=== PATIENT | female | born 1970 | race African-American/Black ===

== ENCOUNTER 2016-11-28 16:04 | Emergency (ER) | payer MEDICARE, MEDICAID ==
[2016-11-28 16:38] VITALS: BP 129/69
--- NOTE | 2016-12-03 08:11 | UC ---
Charu, DoctorLorin, scribed for Lluvia Boland MD on 11/28/16 at 1737 . Knee Pain HPI - HPI Summary HPI Summary: 46 year old [place] [facility] sister c/o left knee pain exacerbated from baseline yesterday afternoon. She reports chronic pain with a bump in the left knee beginning 1 week ago, as well as pain exacerbation after a long walk yesterday. She is planning on seeing a bone specialist within the next month. HPI provided by pt's sister (LUÍS) due to pt's disability (Down Syndrome) - History of Current Complaint Chief Complaint: UCLowerExtremity Stated Complaint: KNEE PAIN Time Seen by Provider: 11/28/16 17:08 Hx Obtained From: Family/Director Maternal Child - Sister (MANNYA) Hx From Patient Unobtainable Due To: Other - Disability - Down Syndrome Hx Last Menstrual Period: none Onset/Duration: Gradual Onset, Lasting Days, Still Present Severity Initially: Moderate Severity Currently: Moderate Location Of Injury: left knee, overuse injury, no fall Pain Intensity: 8 Pain Scale Used: 0-10 Numeric Character: Unable to Describe Aggravating Factor(s): Weight Bearing - pain exacerbated after walking Associated Signs And Symptoms: Positive: Swelling Able to Bear Weight: Yes - Risk Factors Septic Arthritis Risk Factor: Negative Gout Risk Factor: Negative - Allergies/Home Medications Allergies/Adverse Reactions: Allergies Allergy/AdvReac Type Severity Reaction Status Date / Time Hydrocodone Allergy Stomach Verified 04/24/16 14:40 Cramps Home Medications: Home Medications Naproxen [Naproxen 500 MG TABS] 1 PRN 11/28/16 [History] PMH/Surg Hx/FS Hx/Imm Hx Previously Healthy: No - Down's syndrome Endocrine History Of: Denies: Diabetes, Thyroid Disease Cardiovascular History Of: Denies: Cardiac Disorders - no known or reported cardiac issues, Hypertension Respiratory History Of: Denies: COPD, Asthma GI/ History Of: Denies: Ulcer - Surgical History Surgical History: Yes Surgery Procedure, Year, and Place: Heart surgery at 4yrs - Family History Known Family History: Positive: Hypertension, Diabetes - Social History Occupation: Disabled Lives: With Family Alcohol Use: None Substance Use Type: None Smoking Status (MU): Never Smoked Tobacco Household Exposure Type: Cigarettes - Immunization History Most Recent Influenza Vaccination: 2015/2016 season Review of Systems Constitutional: Other - no fever Motor: Negative Neurovascular: Negative Musculoskeletal: Arthralgia - left knee pain Neurological: Negative Psychological: Negative All Other Systems Reviewed And Are Negative: Yes Physical Exam Triage Information Reviewed: Yes Appearance: Well-Appearing, Well-Nourished, Pain Distress - mild pain distress Vital Signs: Initial Vital Signs Temp 97.7 F 11/28/16 16:30 Pulse 69 11/28/16 16:30 Resp 20 11/28/16 16:30 BP 129/69 11/28/16 16:30 Pulse Ox 100 11/28/16 16:30 Vital Signs Reviewed: Yes Eyes: Positive: Conjunctiva Clear ENT: Positive: Normal ENT inspection Neck: Positive: Supple, Nontender Respiratory: Positive: No respiratory distress Cardiovascular: Positive: RRR, Pulses Normal, Brisk Capillary Refill Musculoskeletal: Positive: Strength Intact, ROM Intact, Other: - left knee with medial bony prominence/deformity-has been xrayed per sister and due to see orthopedist soon Neurological: Positive: Alert, Muscle Tone Normal Psychological Exam: Normal Skin Exam: Normal Knee Pain Course/Dx - Differential Dx/Diagnosis Differential Diagnosis/HQI/PQRI: Contusion, Fracture (Closed), Internal Derangement Of Knee, Sprain, Strain, Other - arthritis Provider Diagnoses: acute left knee pain Discharge - Discharge Plan Condition: Stable Disposition: HOME Prescriptions: oxyCODONE/Acetamin 5/325 MG* [Percocet 5/325 TAB*] 1 tab PO Q4H PRN #12 tab MDD 6 PRN Reason: Pain Patient Education Materials: Knee Sprain (ED) Referrals: Ashley Muir MD [Primary Care Provider] - Enrique Ramirez MD [Medical Doctor] - The documentation as recorded by the Doctor rae Tahera accurately reflects the service I personally performed and the decisions made by , Lluvia Boland MD.
== END 2016-11-28 17:41 | disposition home or self-care (01) ==
LOC: UCEAST 16:04
DX: M25.562 Pain in left knee (principal); Q90.9 Down syndrome, unspecified; Z88.5 Allergy status to narcotic agent; Z77.22 Contact with and (suspected) exposure to environmental tobacco smoke (acute) (chronic)
CPT/HCPCS: 99212; G0463

== ENCOUNTER 2017-02-05 14:36 | Emergency (ER) | payer MEDICARE, MEDICAID ==
[2017-02-05 15:12] VITALS: BP 111/71
--- NOTE | 2017-02-05 15:59 | UC ---
Fidel Box Rebecca, scribed for Natasha Loco MD on 02/05/17 at 1514 . Lower Extremity/Ankle HPI - HPI Summary HPI Summary: Pt is a 46 y/o F accompanied by her sister and her niece who presents to [facility] c/o acute on chronic L knee pain s/p mechanical fall. Yesterday, the pt tripped and hit her L knee on stairs. No other injuries, No LOC. Pain worsened this morning and has been constant since onset. On triage, pt reported 10/10 pain, but when asked pt reported no/minimal pain. Sx aggravated by ADLs, alleviated by nothing, unchanged by Naproxen (500 mg). Pt does not have an MARLENY bandage on it currently and has not taken Tylenol. Previous similar episodes have been treated and improved with ice packs, an MARLENY bandage and Percocet per the pt's sister. She has never been evaluated or treated with joint injections. Denies any head, wrist or elbow pain s/p incident. Denies head trauma. Sister states that Ibuprofen and Hydrocodone both cause nausea. Sister states that the L knee has been an ongoing issue and has been brought to the attention of Dr. Nieves ( PCP), stating "she just has a bad knee." Pt currently takes Naproxen 500 mg 2x per day. Sister states that her last prescription for stronger pain medication was 1 or 2 months ago. Allergy to hydrocodone. Pt does not use a walker or cane. Pt with Down Syndrome - struggles with some questions (ie parasthesia) Patient medications reviewed this visit. - History of Current Complaint Chief Complaint: UCLowerExtremity Stated Complaint: KNEE PAIN-RECURRENT Time Seen by Provider: 02/05/17 15:08 Hx Obtained From: Patient, Family/[employer] Dean - Sister Hx Last Menstrual Period: none ?: No Onset/Duration: Sudden Onset, Still Present Severity Initially: Severe Severity Currently: Mild Pain Intensity: 10 - On triage, though pt reported no/minimal when asked Pain Scale Used: 0-10 Numeric Aggravating Factor(s): Other - ADLs Alleviating Factor(s): Nothing Able to Bear Weight: Yes - Allergies/Home Medications Allergies/Adverse Reactions: Allergies Allergy/AdvReac Type Severity Reaction Status Date / Time Hydrocodone Allergy Stomach Verified 08/06/16 14:40 Cramps PMH/Surg Hx/FS Hx/Imm Hx Previously Healthy: Yes - Down Syndrome Endocrine History Of: Denies: Diabetes, Thyroid Disease Cardiovascular History Of: Denies: Cardiac Disorders - no known or reported cardiac issues, Hypertension Respiratory History Of: Denies: COPD, Asthma GI/ History Of: Denies: Ulcer - Surgical History Surgical History: Yes Surgery Procedure, Year, and Place: Heart surgery at 4yrs - Family History Known Family History: Positive: Hypertension, Diabetes - Social History Lives: With Family Alcohol Use: None Substance Use Type: None Smoking Status (MU): Never Smoked Tobacco Household Exposure Type: Cigarettes - Immunization History Most Recent Influenza Vaccination: season Review of Systems Constitutional: Negative Skin: Negative Eyes: Negative ENT: Negative Respiratory: Negative Cardiovascular: Negative Gastrointestinal: Negative Genitourinary: Negative Motor: Negative Neurovascular: Negative Musculoskeletal: Arthralgia - acute on chronic L knee pain Neurological: Negative Psychological: Negative All Other Systems Reviewed And Are Negative: Yes Physical Exam Triage Information Reviewed: Yes Completion Of Physical Exam Limited Due To: Other - Pt with Down Syndrome - struggles with some question comprehension Vital Signs: Initial Vital Signs Temp 97.6 F 02/05/17 15:07 Pulse 62 02/05/17 15:07 Resp 18 02/05/17 15:07 BP 111/71 02/05/17 15:07 Pulse Ox 98 02/05/17 15:07 Vital Signs Reviewed: Yes Eyes: Positive: Conjunctiva Clear ENT: Positive: Hearing grossly normal. Negative: Nasal drainage Neck: Positive: Supple Respiratory: Positive: No respiratory distress Cardiovascular: Positive: Other: - 2+ DP, PT CBT < 2 sec Musculoskeletal: Positive: Other: - + full SLE + full flex/ext knee, ankle + external rotation left hip mild TTP left lateral patella - No edema, no abrasions walked without limp or favor Walked on toes without difficult or discomfort Neurological Exam: Normal - + great to ext Pt reports senasation throughout when touched Skin Exam: Normal Skin: Positive: Other - no contusions, abrasions Lower Extremity Course/Dx - Course Course Of Treatment: Pt with report of trip and re-injure left knee yesterday. Hx primarity from sister. Pt has been given Naproxyn x 1 without reported relief. Pt reports no pain when asked. Pt with non concerning exam and ambulatory without limitations or apparent discomfort, including walking on toes. No marleny wrap at time of eval. I discussed with pt's sister that should wear marleny, ice, elevate. I recommeded pt take Tylenol in addition to Naproxyn. I offered T+C#3 for to supplement. Pt unable to take hydrocodone second to nausea. Sister adament that codeine would not work, but states pt has never tried. Sister felt strongly that pt would not get relief from codeine I should prescribe the "stronger stuff" that worked previously. I expressed to sister that I would write for a short course of codeine and pt should f/u with PCP on Tuesday. Sister not in full agreement but indicated she would do this. Sister then came to desk stating that she works until and requesting T+C through this date. I expressed to sister would prescribe until Tuesday. Sister refused marleny wrap stating does not have time to wait for script - Differential Dx/Diagnosis Provider Diagnoses: left knee pain Discharge - Discharge Plan Condition: Stable Disposition: HOME Prescriptions: Codeine TAB* [Codeine Tab*] 30 mg PO Q8H PRN #12 tab MDD 6 PRN Reason: Pain Patient Education Materials: Knee Pain (ED) Referrals: Ashley Muir MD [Primary Care Provider] - Additional Instructions: - Take Naproxyn 2 times a day as previously prescribed - Okay to take tylelnol product (Tylenol or Tylenol with codeine) every 8 hours. This medication may cause constipation - do NOT drive, operate machinery or drink alcohol while taking this medication - Wear marleny wrap for comfort and support - Appy ice (Wrapped in a towel) 20 minutes at a time, 2-3 times a day - Contact your doctor to schedule a follow-up appointment on Tuesday The documentation as recorded by the Fidel rae Rebecca accurately reflects the service I personally performed and the decisions made by me, Natasha Loco MD.
== END 2017-02-05 15:51 | disposition home or self-care (01) ==
LOC: UCEAST 14:36
DX: M25.562 Pain in left knee (principal); G89.29 Other chronic pain; Q90.9 Down syndrome, unspecified
CPT/HCPCS: 99212; G0463

== ENCOUNTER 2017-03-06 13:49 | Emergency (ER) | payer MEDICARE, MEDICAID ==
[2017-03-06 13:53] VITALS: BP 126/78
--- NOTE | 2017-03-06 13:59 | UC ---
Knee Pain HPI - HPI Summary HPI Summary: left knee pain x 2 weeks pt. has been seen by her pcp , had x ray done and has a referral to ortho in 8 days no know injury - History of Current Complaint Chief Complaint: UCLowerExtremity Stated Complaint: KNEE PAIN Time Seen by Provider: 03/06/17 13:52 Hx Obtained From: Family/Clerical Adviser Hx From Patient Unobtainable Due To: Other - MR Hx Last Menstrual Period: none Onset/Duration: Gradual Onset, Lasting Days, Lasting Weeks - 2, Still Present Severity Initially: Moderate Severity Currently: Moderate Character: Aching Aggravating Factor(s): Movement, Weight Bearing, Prolonged Standing, Stairs Alleviating Factor(s): Rest Associated Signs And Symptoms: Negative: Swelling, Redness, Bruising, Fever, Weakness, Numbness, Tingling - Allergies/Home Medications Allergies/Adverse Reactions: Allergies Allergy/AdvReac Type Severity Reaction Status Date / Time Hydrocodone Allergy Stomach Verified 04/24/16 14:40 Cramps PMH/Surg Hx/FS Hx/Imm Hx - Additional Past Medical History Additional PMH: hx of MR - Surgical History Surgical History: Yes Surgery Procedure, Year, and Place: Heart surgery at 4yrs - Family History Known Family History: Positive: Hypertension, Diabetes - Social History Alcohol Use: None Substance Use Type: None Smoking Status (MU): Never Smoked Tobacco Household Exposure Type: Cigarettes - Immunization History Most Recent Influenza Vaccination: season Review of Systems Constitutional: Negative Skin: Negative Eyes: Negative ENT: Negative All Other Systems Reviewed And Are Negative: Yes Physical Exam Triage Information Reviewed: Yes Appearance: No Pain Distress, Well-Nourished Vital Signs: Initial Vital Signs Temp 98.0 F 03/06/17 13:51 Pulse 70 03/06/17 13:51 Resp 18 03/06/17 13:51 BP 126/78 03/06/17 13:51 Pulse Ox 97 03/06/17 13:51 Vital Signs Reviewed: Yes Eyes: Positive: Conjunctiva Clear ENT: Positive: Normal ENT inspection, Hearing grossly normal, Pharynx normal Neck exam: Normal Respiratory: Positive: Chest non-tender, Lungs clear, Normal breath sounds Cardiovascular: Positive: RRR, No Murmur, Pulses Normal Musculoskeletal: Positive: Other: - left knee: no swelling, no effusion, no tenderness, good ROM on flexion and extension Knee Pain Course/Dx - Differential Dx/Diagnosis Provider Diagnoses: left knee pain Discharge - Discharge Plan Condition: Stable Disposition: HOME Prescriptions: Tramadol HCl [Ultram] 50 mg PO Q8H PRN #15 tab MDD 3 PRN Reason: Pain Patient Education Materials: Knee Pain (ED) Referrals: Ashley Muir MD [Primary Care Provider] - Additional Instructions: please follow up with your ortho on 03/14
== END 2017-03-06 14:11 | disposition home or self-care (01) ==
LOC: UCEAST 13:49
DX: M25.562 Pain in left knee (principal); Z88.5 Allergy status to narcotic agent; Z77.22 Contact with and (suspected) exposure to environmental tobacco smoke (acute) (chronic)
CPT/HCPCS: 99212; G0463

== ENCOUNTER 2017-11-24 18:21 | Emergency (ER) | payer MEDICARE, MEDICAID ==
[2017-11-24 18:35] VITALS: BP 123/66
--- NOTE | 2017-11-24 19:21 | UC ---
Bull Box Jennifer, scribed for Nadir Kennedy MD on 11/24/17 at 1851 . Back Pain HPI - HPI Summary HPI Summary: The pt is a 47 y/o female who complains of knee and back pain that began two days ago. Pt reports the knee pain is in her left knee and back pain is in the center of her back. Pt additionally complains of swelling around her left knee. Her sister reports she noticed pt was dragging her feet while walking and tripped, which is why she brought her into Urgent Care today. Pt is accompanied by her sister. - History of Current Complaint Chief Complaint: UCBackPain Stated Complaint: BACK PAIN, AND KNEE PAIN Time Seen by Provider: 11/24/17 18:40 Hx Obtained From: Patient, Family/Band Master - Sister Hx Last Menstrual Period: none Onset/Duration: Sudden Onset, Lasting Days - 2 days Timing: Constant Severity Initially: Moderate Severity Currently: Moderate Pain Intensity: 8 Pain Scale Used: 0-10 Numeric Aggravating Factor(s): Nothing Alleviating Factor(s): Nothing Associated Signs And Symptoms: Positive: Other - back pain, knee pain, swelling around left knee - Allergies/Home Medications Allergies/Adverse Reactions: Allergies Allergy/AdvReac Type Severity Reaction Status Date / Time hydrocodone Allergy Nausea And Verified 11/24/17 18:36 Vomiting PMH/Surg Hx/FS Hx/Imm Hx Previously Healthy: Yes - NEG: HTN, DM - Surgical History Surgical History: Yes Surgery Procedure, Year, and Place: Heart surgery at 4yrs - Family History Known Family History: Positive: Hypertension, Diabetes - Social History Alcohol Use: None Substance Use Type: None Smoking Status (MU): Never Smoked Tobacco Household Exposure Type: Cigarettes - Immunization History Most Recent Influenza Vaccination: 2014/2015 season Review of Systems Constitutional: Negative - Fever Musculoskeletal: Myalgia - Back pain, left knee pain, swelling around left knee Is Patient Immunocompromised?: No All Other Systems Reviewed And Are Negative: Yes Physical Exam - Summary Physical Exam Summary: General: well-appearing, no pain distress. Pt has an intellectual disability and responded yes to all questions. Skin: warm, color reflects adequate perfusion, dry Head: normal Eyes: EOMI, CHUY ENT: normal Neck: supple, nontender Respiratory: CTA, breath sounds present Cardiovascular: RRR Abdomen: soft, nontender Bowel: present Musculoskeletal: low back hand to palpation, left knee had good ROM, no swelling, and stable to exam. strength/ROM intact Neurological: normal, sensory/motor intact, A&O x3 Psychological: affect/mood appropriate. Pt has an intellectual disability and responded yes to all questions. Triage Information Reviewed: Yes Vital Signs: Initial Vital Signs Temp 97.6 F 11/24/17 18:30 Pulse 81 11/24/17 18:30 Resp 16 11/24/17 18:30 BP 123/66 11/24/17 18:30 Pulse Ox 100 11/24/17 18:30 Vital Signs Reviewed: Yes Back Pain Course/Dx - Course Course Of Treatment: Medications reviewed. Allergies noted. SISTER PROVIDED MOST OF THE HX. SHE REPORTS THE OXYCODONE/ACETAMINOPHEN HELPED TO MOST LAST TIME. SISTER STATES THE PAIN RETURNED WHEN SHAY CHANGED JOBS AT [email or web address]. SHE PLANS TO GET THE JOB CHANGED. NO NEUROLOGIC DEFICIT. - Differential Dx/Diagnosis Provider Diagnoses: LOW BACK PAIN. LEFT KNEE PAIN Discharge - Discharge Plan Condition: Stable Disposition: HOME Prescriptions: oxyCODONE/Acetamin 5/325 MG* [Percocet 5/325 TAB*] 1 tab PO Q6H PRN #20 tab MDD 4 PRN Reason: Pain Patient Education Materials: Acute Low Back Pain (ED), Knee Pain (ED) Referrals: Ashley Muir MD [Primary Care Provider] - Additional Instructions: FOLLOW UP WITH YOUR DOCTOR. GET RECHECKED FOR ANY WORSENING OF YOUR CONDITION OR QUESTIONS OR CONCERNS. YOUR BLOOD PRESSURE WAS ELEVATED TODAY; FOLLOW UP WITH YOUR PRIMARY CARE DOCTOR WITHIN ONE WEEK. The documentation as recorded by the Bull rae Jennifer accurately reflects the service I personally performed and the decisions made by me, Nadir Kennedy MD.
== END 2017-11-24 19:00 | disposition home or self-care (01) ==
LOC: UCEAST 18:21
DX: M54.5 Low back pain (principal); M25.562 Pain in left knee; Z88.5 Allergy status to narcotic agent
CPT/HCPCS: 99212; G0463

== ENCOUNTER 2018-03-06 21:09 | Emergency (ER) | payer MEDICARE, MEDICAID ==
[2018-03-06 21:21] VITALS: BP 132/78
--- NOTE | 2018-03-06 21:58 | RAD ---
Indication: RIGHT knee pain for one week. Posterior pain. Comparison: None. Technique: RIGHT knee: AP, tunnel, lateral, sunrise views. Report: Small suprapatellar joint effusion. Negative for fracture. Severe osteophytosis and lateral joint space narrowing with associated partial flattening of the articular surfaces and subchondral sclerosis. Associated approximate 0.8 cm lateral translation of the tibial plateau relative to the femoral condyles. Mild diffuse soft tissue swelling. IMPRESSION: Severe osteoarthritis most marked at the lateral joint compartment. Small effusion. Negative for fracture.
--- NOTE | 2018-03-06 22:05 | UC ---
Janna Box Elizabeth, scribed for Rich Steel MD on 03/06/18 at 2133 . Knee Pain HPI - HPI Summary HPI Summary: This patient is a 47 year old F presenting to [facility] with a chief complaint of right knee pain since 2 days ago. The patient denies any injury or trauma to the knee. The patient rates the pain 8/10 in severity. Symptoms aggravated by nothing. Symptoms alleviated by nothing. The patients family member reports that the patient cannot walk. - History of Current Complaint Chief Complaint: UCLowerExtremity Stated Complaint: KNEE PAIN Time Seen by Provider: 03/06/18 21:25 Hx Obtained From: Patient Hx Last Menstrual Period: none Onset/Duration: Sudden Onset, Lasting Days - 2 days, Still Present Severity Initially: Moderate Severity Currently: Moderate Pain Intensity: 8 Pain Scale Used: 0-10 Numeric Aggravating Factor(s): Nothing Alleviating Factor(s): Nothing - Allergies/Home Medications Allergies/Adverse Reactions: Allergies Allergy/AdvReac Type Severity Reaction Status Date / Time hydrocodone Allergy Nausea And Verified 03/06/18 21:22 Vomiting Home Medications: Home Medications Acetaminophen TAB* [Tylenol TAB*] 650 mg PO Q4H PRN 03/06/18 [History Confirmed 03/06/18] PMH/Surg Hx/FS Hx/Imm Hx Previously Healthy: Yes - down syndrome Other Endocrine History: negative diabetes Other Cardiovascular History: negative htn - Surgical History Surgical History: Yes Surgery Procedure, Year, and Place: Heart surgery at 4yrs - Family History Known Family History: Positive: Hypertension, Diabetes - Social History Alcohol Use: None Substance Use Type: None Smoking Status (MU): Never Smoked Tobacco Household Exposure Type: Cigarettes - Immunization History Most Recent Influenza Vaccination: 2014/2015 season Review of Systems Constitutional: Negative - NEGATIVE FEVER ENT: Negative - NEGATIVE EPISTAXIS Gastrointestinal: Negative - NEGATIVE VOMITING Musculoskeletal: Arthralgia - right knee pain All Other Systems Reviewed And Are Negative: Yes Physical Exam - Summary Physical Exam Summary: VITAL SIGNS: Reviewed. GENERAL: Patient is a well-developed and nourished FEMALE who is lying comfortable in the stretcher. Patient is not in any acute respiratory distress. HEAD AND FACE: Normocephalic EYES: PERRLA, EOMI x 2. EARS: Hearing grossly intact. MOUTH: Oropharynx within normal limits. NECK: Supple, trachea is midline, no adenopathy, no JVD, no carotid bruit. CHEST: Symmetric, no tenderness at palpation LUNGS: Clear to auscultation bilaterally. No wheezing or crackles. CVS: Regular rate and rhythm, S1 and S2 present, no murmurs or gallops appreciated. ABDOMEN: Soft, non-tender. Bowel sounds are normal. No abdominal abnormal pulsations. EXTREMITIES: Full ROM in all major joints, no edema, no cyanosis or clubbing. NEURO: Alert and oriented x 3. No acute neurological deficits. Speech is normal and follows commands. SKIN: Dry and warm Triage Information Reviewed: Yes Vital Signs: Initial Vital Signs Temp 98.6 F 03/06/18 21:16 Pulse 91 03/06/18 21:16 Resp 14 03/06/18 21:16 BP 132/78 03/06/18 21:16 Pulse Ox 100 03/06/18 21:16 Vital Signs Reviewed: Yes Diagnostics - Radiology right knee XR Xray Interpretation: No Acute Changes - IMPRESSION: Severe osteoarthritis most marked at the lateral joint compartment. Small effusion. Negative for fracture. Dr. Stele has reviewed this report. Radiology Interpretation Completed By: Radiologist Knee Pain Course/Dx - Course Course Of Treatment: X-ray of the knee shows no fracture dislocation. Patient was recommended to take Tylenol or ibuprofen for pain. Follow-up with the primary care physician. - Differential Dx/Diagnosis Provider Diagnoses: Knee pain Discharge - Sign-Out/Discharge Documenting (check all that apply): Discharge/Admit/Transfer - Discharge Plan Condition: Stable Disposition: HOME Discharge Disposition Comment: discharge home Patient Education Materials: Knee Pain (ED) Referrals: Ashley Muir MD [Primary Care Provider] - - Billing Disposition and Condition Condition: STABLE Disposition: Home The documentation as recorded by the Janna rae Elizabeth accurately reflects the service I personally performed and the decisions made by , Rich Steel MD.
== END 2018-03-06 22:07 | disposition home or self-care (01) ==
LOC: UCEAST 21:09
DX: M25.561 Pain in right knee (principal); M17.11 Unilateral primary osteoarthritis, right knee; M25.461 Effusion, right knee; Q90.9 Down syndrome, unspecified; Z88.5 Allergy status to narcotic agent; Z82.49 Family history of ischemic heart disease and other diseases of the circulatory system; Z83.3 Family history of diabetes mellitus
CPT/HCPCS: 99211; G0463

== ENCOUNTER → 2018-10-13 12:01 | Emergency (ER) | payer MEDICARE, MEDICAID ==
[2018-10-13 15:26] VITALS: BP 139/79
--- NOTE | 2018-10-13 17:58 | ED ---
Lower Extremity - HPI Summary HPI Summary: Patient is a 47-year-old female who presents emergency department for ongoing right knee pain after fall that occurred a few days ago. Patient has a history of developmental delay and resides with her aunt who is her caregiver. Patient' s aunt states that she tripped and fell several days ago and has been favoring/ limping. No other injuries were sustained. Symptoms are mild in severity. Walking makes symptoms worse. Rest makes symptoms better. 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 Hx Last Menstrual Period: none Pain Intensity: 3 Pain Scale Used: 0-10 Numeric - Allergies/Home Medications Allergies/Adverse Reactions: Allergies Allergy/AdvReac Type Severity Reaction Status Date / Time hydrocodone Allergy Nausea And Verified 03/06/18 21:22 Vomiting PMH/Surg Hx/FS Hx/Imm Hx Previously Healthy: Yes Endocrine/Hematology History: Denies: Hx Diabetes, Hx Thyroid Disease Cardiovascular History: Denies: Hx Hypertension Respiratory History: Denies: Hx Asthma, Hx Chronic Obstructive Pulmonary Disease (COPD) GI History: Denies: Hx Ulcer - Surgical History Surgery Procedure, Year, and Place: Heart surgery at 4yrs Infectious Disease History: No Infectious Disease History: Denies: Hx Clostridium Difficile, Hx Hepatitis, Hx Human Immunodeficiency Virus (HIV), Hx of Known/Suspected MRSA, Hx Shingles, Hx Tuberculosis, Hx Known/ Suspected VRE, Hx Known/Suspected VRSA, History Other Infectious Disease, Traveled Outside the [place] in Last 30 Days - Family History Known Family History: Positive: Hypertension, Diabetes - Social History Occupation: Disabled Lives: With Family Alcohol Use: None Substance Use Type: Reports: None Smoking Status (MU): Never Smoked Tobacco Review of Systems Constitutional: Negative Negative: Fever, Chills Gastrointestinal: Negative Positive: Other - Right knee pain and swelling Skin: Negative All Other Systems Reviewed And Are Negative: Yes Physical Exam Triage Information Reviewed: Yes Vital Signs On Initial Exam: Initial Vitals Temp Pulse Resp BP Pulse Ox 97.8 F 73 18 129/76 100 10/13/18 12:02 10/13/18 12:02 10/13/18 12:02 10/13/18 12:02 10/13/18 12:02 Vital Signs Reviewed: Yes Appearance: Positive: Well-Appearing - Pt. sitting on bed in NAD. Interactive. Family member present. Skin: Positive: Warm, Dry Head/Face: Positive: Normal Head/Face Inspection Eyes: Positive: Normal, EOMI Neck: Positive: Supple Musculoskeletal: Positive: Other - Small-moderate effusion noted to the right knee with pain on ROM. No overlying erythema or increased warmth. No breaks in the skin. Neurological: Positive: Normal, CN Intact II-III Psychiatric: Positive: Affect/Mood Appropriate Diagnostics - Vital Signs Vital Signs Temp Pulse Resp BP Pulse Ox 10/13/18 15:24 98.6 F 70 18 139/79 98 10/13/18 14:03 98.8 F 86 15 125/79 99 10/13/18 12:02 97.8 F 73 18 129/76 100 - Laboratory Lab Statement: Any lab studies that have been ordered have been reviewed, and results considered in the medical decision making process. Lower Extremity Course/Dx - Course Course Of Treatment: Patient presenting for ongoing knee pain after fall a few days ago. No signs of infection on exam. Knee xray per radiology: IMPRESSION: 1. OSTEOPENIA. 2. OSTEOARTHRITIS. 3. JOINT EFFUSION. 4. NO ACUTE OSSEOUS INJURY. THE DEGREE OF OSTEOPENIA MAY MAKE A NONDISPLACED FRACTURE. RADIOGRAPHICALLY OCCULT. IF SYMPTOMS PERSIST, RECOMMEND REPEAT IMAGING. Xray results were disussed with pt.'s aunt. Pt.'s aunt is very concerned about the possibility of an occult fx. She states that pt. has really been favoring knee and has been c/o ongoing pain. CT ordered to rule out occult fracture. CT per radiology: IMPRESSION: #. No CT evidence for fracture. #. Advanced osteoarthritis. #. Moderately large joint effusion without gross lipohemarthrosis. Tobin wrap placed for comfort. The patient follow up with orthopedics for further evaluation. Advised to ice and elevate. Tylenol or Motrin for pain as directed. Patient is ambulatory in the ER. - Diagnoses Differential Diagnosis/HQI/PQRI: Positive: Arthritis, Contusion, Fracture ( Closed), Sprain, Strain Provider Diagnoses: Knee effusion, Knee injury Discharge - Sign-Out/Discharge Documenting (check all that apply): Patient Departure - Discharge Plan Condition: Good Disposition: HOME Patient Education Materials: Knee Sprain (ED) Referrals: Ashley Muri MD [Primary Care Provider] - Janelle Daley MD [Medical Doctor] - Additional Instructions: Schedule a follow up appointment with orthopedics Ice and elevate Activity as tolerated Tylenol or Motrin for pain as directed Return to ER if symptoms change or worsen - Billing Disposition and Condition Condition: GOOD Disposition: Home
== END | disposition home or self-care (01) ==
LOC: ED 12:01
DX: M25.461 Effusion, right knee (principal); S89.91XA Unspecified injury of right lower leg, initial encounter; M25.561 Pain in right knee; W19.XXXA Unspecified fall, initial encounter; Y92.9 Unspecified place or not applicable
CPT/HCPCS: 99282

== ENCOUNTER 2019-06-12 13:21 | Emergency (ER) | payer MEDICARE, MEDICAID ==
[2019-06-12] MEDS ORDERED: Ibuprofen PED LIQ 100 MG/5 ML UDC PO ONE (15:38)
[2019-06-12 16:58] VITALS: BP 128/88
--- NOTE | 2019-06-13 05:09 | ED ---
Upper Extremity Pain - HPI Summary HPI Summary: This patient is a 48-year-old female with a history of Down syndrome presenting to the ED with staff member with a chief complaint of left shoulder upper arm and elbow pain. Symptoms have been present since 2 AM. Patient reports no trauma. States she awoke at around 2 this morning with severe left arm pain. She states the pain is worse to the left superior shoulder radiating down into the left lateral portion of the upper arm and elbow. Staff member at bedside states she has not been lifting anything more frequently or having any overuse. She has never injured this arm in the past. Tends to not complain which concerned the staff member. Has not taken anything for discomfort. Patient is to be having a knee replacement surgery next month, so they have been working on more upper body strength, getting out of chairs, etc, which could have aggravated the arm. Sxs worse with movement and better with rest. Sxs worse with internal rotation and better with rest. Denies fevers, sweats or chills. Denies any lower ext pain. - History of Current Complaint Chief Complaint: EDExtremityUpper Stated Complaint: LT SHOULDER AND ELBOW PAIN PER PT Time Seen by Provider: 06/12/19 14:33 Hx Obtained From: Patient Hx Last Menstrual Period: none Mechanism Of Injury: Unknown Onset/Duration: Started Hours Ago Timing: Constant Severity Initially: Moderate Severity Currently: Moderate Pain Location: Shoulder, Arm, Elbow Character: Aching Aggravating Factor(s): Internal/External Rotation Alleviating Factor(s): Rest Associated Signs & Symptoms: Negative: Swelling, Redness, Bruising, Numbness/ Tingling, Chest Pain Related History: Dominant Hand Right - Risk Factors Non-Orthopedic Risk Factor: Negative DVT Risk Factors: Negative Septic Arthritis Risk Factor: Negative Compartment Syndrome Risk Factors: Pain - Allergies/Home Medications Allergies/Adverse Reactions: Allergies Allergy/AdvReac Type Severity Reaction Status Date / Time hydrocodone Allergy Nausea And Verified 11/29/18 07:58 Vomiting PMH/Surg Hx/FS Hx/Imm Hx Previously Healthy: Yes Endocrine/Hematology History: Denies: Hx Diabetes, Hx Thyroid Disease Cardiovascular History: Denies: Hx Hypertension Respiratory History: Denies: Hx Asthma, Hx Chronic Obstructive Pulmonary Disease (COPD) GI History: Denies: Hx Ulcer - Surgical History Surgery Procedure, Year, and Place: Heart surgery at 4yrs - Immunization History Hx Pertussis Vaccination: No Immunizations Up to Date: Yes Infectious Disease History: No Infectious Disease History: Denies: Hx Clostridium Difficile, Hx Hepatitis, Hx Human Immunodeficiency Virus (HIV), Hx of Known/Suspected MRSA, Hx Shingles, Hx Tuberculosis, Hx Known/ Suspected VRE, Hx Known/Suspected VRSA, History Other Infectious Disease, Traveled Outside the [place] in Last 30 Days - Family History Known Family History: Positive: Hypertension, Diabetes - Social History Occupation: Unemployed Lives: Long-Term Alcohol Use: None Hx Substance Use: No Substance Use Type: Reports: None Hx Tobacco Use: No Smoking Status (MU): Never Smoked Tobacco Review of Systems Negative: Fever, Chills, Fatigue, Skin Diaphoresis Negative: Palpitations, Chest Pain Negative: Shortness Of Breath, Cough Genitourinary: Negative Positive: no symptoms reported, see HPI Positive: Arthralgia - left shoulder pain and elbow pain Skin: Negative Neurological: Negative All Other Systems Reviewed And Are Negative: Yes Physical Exam Triage Information Reviewed: Yes Vital Signs On Initial Exam: Initial Vitals Temp Pulse Resp BP Pulse Ox 97.8 F 71 17 125/70 98 06/12/19 13:24 06/12/19 13:24 06/12/19 13:24 06/12/19 13:24 06/12/19 13:24 Vital Signs Reviewed: Yes Appearance: Positive: Well-Appearing, Well-Nourished Skin: Positive: Warm, Skin Color Reflects Adequate Perfusion Head/Face: Positive: Normal Head/Face Inspection Eyes: Positive: EOMI, CHUY, Conjunctiva Clear Neck: Positive: Supple, No Lymphadenopathy Respiratory/Lung Sounds: Positive: Clear to Auscultation, Breath Sounds Present Cardiovascular: Positive: RRR, Pulses are Symmetrical in both Upper and Lower Extremities Musculoskeletal: Positive: Pain @ - left shoulder and elbow pain Neurological: Positive: Sensory/Motor Intact, Alert, Oriented to Person Place, Time, Speech Normal Psychiatric: Positive: Affect/Mood Appropriate Diagnostics - Vital Signs Vital Signs Temp Pulse Resp BP Pulse Ox 06/12/19 16:57 98.3 F 75 16 128/88 97 06/12/19 13:24 97.8 F 71 17 125/70 98 - Laboratory Lab Statement: Any lab studies that have been ordered have been reviewed, and results considered in the medical decision making process. Course/Dx - Course Course Of Treatment: During his course of treatment, the patient waited for left shoulder, upper arm and left elbow pain. Patient denies any trauma. She denies any lifting of anything heavy. She's never injured the arm in the past. On physical examination, symptoms are worse with full extension as well as internal rotation. Better with rest at side. Continues to be able to supinate and pronate, however with some discomfort. Continues to be able to flex and extend, abduct and adduct at the left shoulder, however with discomfort. Patient is endorsing a 5/10 pain. Staff member at bedside concerned as patient tends to not complain. X-ray of the left shoulder obtained which shows normal before meals joint alignment mild superior subluxation of the humeral head relative to the glenoid and decreased humoral acromial interval favoring rotator cuff pathology. Elbow x-ray obtained which shows a probable radial head fracture with joint effusion. This is not apparent to provider on xray and is not consistent as no injury. However, she will f/u with orthopedics for further evaluation of this and the subluxation of the L shoulder. Discussed these findings with the patient and staff member. Sling given and she will follow-up with orthopedics for her symptoms. I have encouraged 600 mg ibuprofen every 8 hours and she is given 600mg liquid ibuprofen while in the ED. - Diagnoses Differential Diagnosis/HQI/PQRI: Positive: Strain, Sprain, Other - radial head fracture, shoulder pain, elbow pain, tendonitis, arthritis, trauma, elbow effusion Provider Diagnoses: Subluxation, Elbow effusion Discharge ED - Sign-Out/Discharge Documenting (check all that apply): Patient Departure Patient Received Moderate/Deep Sedation with Procedure: No - Discharge Plan Condition: Stable Disposition: HOME Prescriptions: Ibuprofen ADULT LIQ* [Motrin LIQ ADULT*] 600 mg PO TID #1 [facility] [place] Patient Education Materials: Rotator Cuff Injury (ED) Referrals: Juan Garg MD [Medical Doctor] - Ashley Muir MD [Primary Care Provider] - Additional Instructions: Please follow up with Dr. Garg - call office tomorrow morning for an appt Keep the sling applied x 24 -48 hours then as needed for comfort Ibuprofen 600mg three times daily - Billing Disposition and Condition Condition: STABLE Disposition: Home - Attestation Statements Provider Attestation: I was available for consult. This patient was seen by the HITESH. The patient was not presented to, seen by, or examined by me. Glenn Castillo MD
== END 2019-06-12 16:57 | disposition home or self-care (01) ==
LOC: ED 13:21
DX: S53.19 Other subluxation and dislocation of ulnohumeral joint (principal); M25.422 Effusion, left elbow; X58.XXXA Exposure to other specified factors, initial encounter; Y92.9 Unspecified place or not applicable; Q90.9 Down syndrome, unspecified; Z88.5 Allergy status to narcotic agent
CPT/HCPCS: 99282

== ENCOUNTER 2019-07-23 05:48 | Inpatient (IN) | payer MEDICARE, MEDICAID ==
[~2019-07-23 05:48] MED LIST: Buffered Lidocaine 1% SYRIN* 1 ML/SYRINGE INTRADERM ONE; Tranexamic Acid 1,000 MG in NS 0.9% 50 ML* (outpatient use) IV SCH
--- OUTSIDE RECORDS SUMMARY | 2019-07-23 05:53 | XMS REPORT | Continuity of Care Document ---
:1970 External Reference #:[id number] Author Name Juan Garg M.D. (transmitted by agent of provider Rebecca Ortez) Address [address] [place] [address] Care Team Providers Name Role Phone Trista Giron M.D. 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 Onset: 06/20/2019 Social History Type Date Description Comments Sex Unknown Tobacco Use Start: Unknown Never Smoked Cigarettes ETOH Use Drinks Alcoholic Beverages 1 per week Occasionally Tobacco Use Start: Unknown Patient has never smoked Recreational Drug Use Denies Drug Use Tobacco Use Start: Unknown Secondhand smoke In the past Smoking Status Reviewed: 06/20/19 Secondhand smoke In the past Exercise Type/Frequency Exercises regularly Exercise Type/Frequency Oscar Chi 3x per week Exercise Type/Frequency Bikes sporadically Stationary Allergies, Adverse Reactions, Alerts Description No Known Drug Allergies Medications Active Medications SIG Qnty Indications Ordering Provider Date Levothyroxine Sodium 1 by mouth Ashley Muir 50mcg daily MD Yajaira Tablets Atorvastatin Calcium 1 by mouth Ashley Muir 20mg daily MD Yajaira Tablets Restasis Multidose Unknown 0.05% Emulsion Diclofenac Sodium Unknown 1% Gel History Medications Hinge Knee Brace Disp 1 hinge 1units M17.31 Juan Garg, 05/24/2019 - knee brace for MLamine 06/14/2019 right knee OA Ht 55 Wt 160 Immunizations Description No Information Available Vital Signs Date Vital Result Comment 06/20/2019 2:45pm Height 55.5 inches 4'7.50" Weight 160.00 lb Heart Rate 64 /min BP Systolic 122 mmHg BP Diastolic 72 mmHg Body Temperature 96.1 F Pain Level 3 BMI (Body Mass Index) 36.5 kg/m2 06/14/2019 10:36am Height 55 inches 4'7" Weight 160.00 lb Heart Rate 73 /min BP Systolic 132 mmHg BP Diastolic 70 mmHg Body Temperature 96.8 F Pain Level 10 BMI (Body Mass Index) 37.2 kg/m2 Results Description No Information Available Procedures Description No Information Available Medical Devices Description No Information Available Encounters Type Date Location Provider Dx Diagnosis Office Visit 04/11/2019 [facility] Juan Garg, M17.31 Unilateral 8:30a at [facility].[place] post-traumatic osteoarthritis, right knee Office Visit 03/16/2019 [facility] Teresa Painter, G47.33 Obstructive sleep 9:15a [facility] ap[facility] (adult) [facility] (pediatric) Assessments Date Code Description Provider 06/20/2019 M17.31 Unilateral post-traumatic osteoarthritis, Juan Garg M.D. right knee 06/14/2019 M25.512 Pain in left shoulder Janelle Daley MD 06/14/2019 M25.522 Pain in left elbow Janelle Daley MD 06/14/2019 S52.122A Displaced fracture of head of left radius, Janelle Daley MD initial encounter for closed fracture 06/14/2019 M75.42 Impingement syndrome of left shoulder Janelle Daley MD 05/23/2019 M17.31 Unilateral post-traumatic osteoarthritis, Juan Garg M.D. right knee 04/11/2019 M17.31 Unilateral post-traumatic osteoarthritis, Juan Garg M.D. right knee 03/16/2019 G47.33 Obstructive sleep apnea (adult) (pediatric) Teresa Painter MD Plan of Treatment Future Appointment(s):08/22/2019 3:30 pm - Jaun Garg M.D. at [facility] at Mwgkam4506/28/2019 9:15 am - Janelle Daley MD at [facility] at Wkrpcx7007/11/2019 2:00 pm - Gutierrez Olivarez M.D. at [facility]/23/2019 7:30 am - Juan Garg M.D. at [facility] at Zymfkd5606/20/2019 - Juan Garg M.D.7.31 Unilateral post- traumatic osteoarthritis, right kneeFollow up:Follow up: 4 weeks post-op Functional Status Description No Information Available Mental Status Description No Information Available Referrals Description No Information Available
--- OUTSIDE RECORDS SUMMARY | 2019-07-23 05:53 | XMS REPORT | Continuity of Care Document ---
:1970 External Reference #:[id number] Author Name Soham Britt MD Address [address] [place] [address] Care Team Providers Name Role Phone Mack MOSS, Claribel Care Team Information Collective Bargaining Specialist [phone] Gutierrez Olivarez MD - Spec/Tech, Care Team Information Collective Bargaining Specialist [phone] Cardiovascular Problems Description No Information Available Social History Type Date Description Comments Sex Unknown Tobacco Use Start: Unknown Never Smoked Cigarettes Tobacco Use Start: Unknown Never Smoked Cigars Tobacco Use Start: Unknown Never Smoked A Pipe Smokeless Tobacco Never Used Smokeless Tobacco ETOH Use Currently rarely consumes alcohol Allergies, Adverse Reactions, Alerts Description No Known Drug Allergies Medications Active Medications SIG Qnty Indications Ordering Provider Date Ibuprofen Unknown 600mg Tablets Atorvastatin Calcium TK 1 T PO D Unknown 20mg Tablets Levothyroxine Sodium Claribel Giron MD. 50mcg Tablets Restasis Unknown 0.05% Emulsion Diclofenac Sodium Daily Unknown 50mg Tablets DR Holt Description No Information Available Vital Signs Date Vital Result Comment 07/12/2019 3:53pm Weight 163.00 lb Weight 73.937 kg Results Description No Information Available Procedures Date Code Description Status 07/12/2019 89382 Tympanometry Completed 07/12/2019 00197 Comprehensive Audiogram Completed 07/12/2019 58163 Removal Wax Impaction Completed Medical Devices Description No Information Available Encounters Type Date Location Provider Dx Diagnosis Office Visit 07/12/2019 [place],Soham Linder H90.5 Unspecified 3:30p 09/19/07 sensorineural hearing loss H61.23 Impacted cerumen, bilateral Assessments Date Code Description Provider 07/12/2019 H90.5 Unspecified sensorineural hearing loss Soham Britt MD 07/12/2019 H61.23 Impacted cerumen, bilateral Soham Britt MD Plan of Treatment 07/12/2019 - Soham Britt MDH90.5 Unspecified sensorineural hearing lossH61.23 Impacted cerumen, bilateralComments:The patient's cerumen impaction was cleaned without difficulty. mild hearing loss presently does notwarrant any further investigation or treatment but should have further follow-up annually Functional Status Description No Information Available Mental Status Description No Information Available Referrals Description No Information Available
--- OUTSIDE RECORDS SUMMARY | 2019-07-23 05:53 | XMS REPORT | Continuity of Care Document ---
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 06/14/2019 right knee OA Ht 55 Wt 160 Immunizations Description No Information Available Vital Signs Date Vital Result Comment 06/14/2019 10:36am Height 55 inches 4'7" Weight 160.00 lb Heart Rate 73 /min BP Systolic 132 mmHg BP Diastolic 70 mmHg Body Temperature 96.8 F Pain Level 10 BMI (Body Mass Index) 37.2 kg/m2 04/11/2019 9:10am Height 55 inches 4'7" Weight 160.00 lb Heart Rate 64 /min BP Systolic Sitting 112 mmHg Lue BP Diastolic Sitting 84 mmHg Lue Respiratory Rate 16 /min Body Temperature 98.1 F Pain Level 4 BMI (Body Mass Index) 37.2 kg/m2 Results Description No Information Available Procedures Description No Information Available Medical Devices Description No Information Available Encounters Type Date Location Provider Dx Diagnosis Office Visit 06/14/2019 [facility] Janelle Daley MD M25.512 Pain in left 10:30a at [place] shoulder M25.522 Pain in left elbow S52.122A Disp fx of head of left radius, init for clos fx M75.42 Impingement syndrome of left shoulder Office Visit 04/11/2019 [facility] M17.31 Unilateral 8:30a Orthopedics indira Garg M.D. post-traumatic [place] osteoarthritis, right knee Office Visit 03/16/2019 [facility] Teresa G47.33 Obstructive sleep 9:15a [facility] apnea (adult) [employer] (pediatric) Assessments Date Code Description Provider 06/14/2019 M25.512 Pain in left shoulder Janelle Daley MD 06/14/2019 M25.522 Pain in left elbow Janelle Daely MD 06/14/2019 S52.122A Displaced fracture of head of left radius, Janelle Daley MD initial encounter for closed fracture 06/14/2019 M75.42 Impingement syndrome of left shoulder Janelle Daley MD 05/23/2019 M17.31 Unilateral post-traumatic osteoarthritis, Juan Garg M.D. right knee 04/11/2019 M17.31 Unilateral post-traumatic osteoarthritis, Juan Garg M.D. right knee 03/16/2019 G47.33 Obstructive sleep apnea (adult) (pediatric) Teresa Painter MD Plan of Treatment Future Appointment(s):06/28/2019 9:15 am - Janelle Daley MD at [facility] at Rjbcer2806/20/2019 2:45 pm - Juan Gagr M.D. at [facility] at Vlkllb6307/11/2019 2:00 pm - Gutierrez Olivarez M.D. at [place] [facility]07/23/2019 7:30 am - Juan Garg M.D. at [facility] at Tbupmq3906/14/2019 - Janelle Daley, MDM25.512 Pain in left ouulhdjfI98.522 Pain in left yexfoZ80.122A Displaced fracture of head of left radius, initial encounter for closed fractureFollow up:Follow up: 2 vnurrF23.42 Impingement syndrome of left shoulder Functional Status Description No Information Available Mental Status Description No Information Available Referrals Description No Information Available
--- OUTSIDE RECORDS SUMMARY | 2019-07-23 05:53 | XMS REPORT | Continuity of Care Document ---
:1970 External Reference #:[id number] Author Name Gutierrez Olivarez M.D. (transmitted by agent of provider Danielle Martino) Address [address] [address] Care Team Providers Name Role Phone Trista Giron M.D. 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 Onset: 06/20/2019 Disorder of shoulder Janelle Daley MD Onset: 06/28/2019 Closed fracture of head of radius Janelle Daley MD Onset: 06/28/2019 Social History Type Date Description Comments Sex Unknown Tobacco Use Start: Unknown Never Smoked Cigarettes ETOH Use Drinks Alcoholic Beverages 1 per week Occasionally Tobacco Use Start: Unknown Patient has never smoked Recreational Drug Use Denies Drug Use Tobacco Use Start: Unknown Secondhand smoke In the past Smoking Status Reviewed: 07/11/19 Secondhand smoke In the past Exercise Type/Frequency Exercises regularly Exercise Type/Frequency Oscar Chi 3x per week Exercise Type/Frequency Bikes sporadically Stationary Allergies, Adverse Reactions, Alerts Description No Known Drug Allergies Medications Active Medications SIG Qnty Indications Ordering Provider Date Levothyroxine Sodium 1 by mouth daily Ashley Muir 50mcg MD Yajaira Tablets Atorvastatin Calcium 1 by mouth daily Ashley Muir 20mg MD Yajaira Tablets Restasis Multidose 1 gtt both eyes Unknown 0.05% twice daily Emulsion Diclofenac Sodium as needed Unknown 1% Gel Ibuprofen one tablet by Unknown 600mg Tablets mouth q6 as needed pain History Medications Hinge Knee Brace Disp 1 hinge 1units M17.31 Juan Garg, 05/24/2019 - knee brace for M.D. 06/14/2019 right knee OA Ht 55 Wt 160 Immunizations Description No Information Available Vital Signs Date Vital Result Comment 07/11/2019 11:45am Height 55.5 inches 4'7.50" Weight 164.00 lb with shoes BP Systolic 112 mmHg LA BP Diastolic 66 mmHg LA BP Systolic Sitting 110 mmHg Ra BP Diastolic Sitting 64 mmHg Ra BMI (Body Mass Index) 37.4 kg/m2 Ejection Fraction 55-60% Echo 09/26/18 06/28/2019 8:58am Height 55.5 inches 4'7.50" Results Test Date Facility Test Result H/L Range Note Urinalysis Profile 07/10/2019 [facility] Urine Color Straw [address] [place] [address] [phone] Urine Appearance Clear Urine Specific [place] 1.009 Low 1.010-1.030 Urine pH 5.0 Normal 5-9 Urine Urobilinogen Negative Negative Urine Ketones Negative Negative Urine Protein Negative Negative Urine Leukocytes Trace Abnormal Negative Urine Blood Negative Negative Urine Nitrite Negative Negative Urine Bilirubin Negative Negative Urine Glucose Negative Negative Urine White Blood Cell Trace(0-5/hpf) Absent Urine Red Blood Cell 1+(3-5/hpf) Abnormal Absent Urine Bacteria Absent Absent Urine Squamous Epithelial Cell Present Abnormal Absent Inr/Protime 07/10/2019 [facility] Inr 1.06 Normal 0.82-1.09 [address] [place] [address] [phone] Laboratory test 07/10/2019 [facility] Partial 30.8 Normal 26.0 -38.[address] [facility] ([place], [place]) [place] [address] Time PTT [phone] Comp Metabolic 07/10/2019 [facility] Sodium 139 mmol/L Normal 135-145 Panel [address] [place] [address] [phone] Potassium 4.7 mmol/L Normal 3.5-5.0 Chloride 105 mmol/L Normal 101-111 Co2 Carbon Dioxide 29 mmol/L Normal 22-32 Anion Gap 5 mmol/L Normal 2-11 Glucose 88 mg/dL Normal 70-100 Blood Urea Nitrogen 14 mg/dL Normal 6-24 Creatinine 0.97 mg/dL High 0.51-0.95 BUN/Creatinine Ratio 14.4 Normal 8-20 Calcium 8.7 mg/dL Normal 8.6-10.3 Total Protein 7.0 g/dL Normal 6.4-8.9 Albumin 3.5 g/dL Normal 3.2-5.2 Globulin 3.5 g/dL Normal 2-4 Albumin/Globulin Ratio 1.0 Normal 1-3 Total Bilirubin 0.50 mg/dL Normal 0.2-1.0 Alkaline Phosphatase 71 U/L Normal 34-104 Alt 13 U/L Normal 7-52 Ast 14 U/L Normal 13-39 Egfr Non- 60.8 >60 Egfr 73.6 >60 2 CBC Auto 07/10/2019 [facility] White Blood 6.0 10^3/uL Normal 3.5-10.[address] [place] [address] [phone] Red Blood Count 4.53 10^6/uL Normal 3.70-4.87 Hemoglobin 12.5 g/dL Normal 12.0-16.0 Hematocrit 39 % Normal 35-47 Mean Corpuscular Volume 86 fL Normal 80-97 Mean Corpuscular Hemoglobin 28 pg Normal 27-31 Mean Corpuscular HGB Conc 32 g/dL Normal 31-36 Red Cell Distribution Width 17 % High 10-15 Platelet Count 259 10^3/uL Normal 150-450 Mean Platelet Volume 7.4 fL Normal 7.4-10.4 Abs Neutrophils 3.2 10^3/uL Normal 1.5-7.7 Abs Lymphocytes 2.2 10^3/uL Normal 1.0-4.8 Abs Monocytes 0.5 10^3/uL Normal 0-0.8 Abs Eosinophils 0.1 10^3/uL Normal 0-0.6 Abs Basophils 0.1 10^3/uL Normal 0-0.2 Abs Nucleated RBC 0.0 10^3/uL Granulocyte % 52.7 % Lymphocyte % 36.6 % Monocyte % 8.0 % Eosinophil % 1.4 % Basophil % 1.3 % Nucleated Red Blood Cells % 0.1 Type & Screen 07/10/2019 [facility] Patient Blood Type A Positive [address] [place] [address] [phone] Antibody Screen NEGATIVE 1 Standard intensity warfarin therapeutic range: 2.0-3.0 High intensity warfarin therapeutic range: 2.5-3.5 2 Because ethnic data is not always readily available, this report includes an eGFR for both -Americans and non- Americans. The National Kidney Disease Education Program (NKDEP) does not endorse the use of the MDRD equation for patients that are not between the ages of 18 and 70, are , have extremes of body size, muscle mass, or nutritional status, or are non- or non-. According to the National Kidney Foundation, irrespective of diagnosis, the stage of the disease is based on the level of kidney function: Stage Description GFR(mL/min/1.73 m(2)) 1 Kidney damage with normal or decreased GFR 90 2 Kidney damage with mild decrease in GFR 60-89 3 Moderate decrease in GFR 30-59 4 Severe decrease in GFR 15-29 5 Kidney failure <15 (or dialysis) Procedures Date Code Description Status 07/11/2019 29809 EKG Tracing & Interpretation Completed Medical Devices Description No Information Available Encounters Type Date Location Provider Dx Diagnosis Office Visit 07/11/2019 [facility] Gutierrez Johnson R94.31 Abnormal 2:00p Of Yesenia Olivarez M.D. electrocardiogram [ECG] [EKG] Z01.810 Encounter for preprocedural cardiovascular examination R06.00 Dyspnea, unspecified Office Visit 06/28/2019 9:15a [facility] Janelle Daley M75.42 Impingement at [place] syndrome of left shoulder S52.125D Nondisp fx of head of l rad, subs for clos fx w routn heal Office Visit 06/14/2019 10:30a [facility] Janelle Daley M25.512 Pain in left at [place] [facility] M25.522 Pain in left elbow M75.42 Impingement syndrome of left shoulder S52.125A Nondisp fx of head of left radius, init for clos fx Office Visit 04/11/2019 [facility] Martinez M17.31 Unilateral 8:30a Orthopedics at [facility]anda Garg post-traumatic [place] osteoarthritis, right knee Office Visit 03/16/2019 [facility] G47.33 Obstructive sleep 9:15a [facility] apnea (adult) Yesenia (pediatric) Assessments Date Code Description Provider 07/11/2019 R94.31 Electrocardiogram abnormal Gutierrez Olivarez M.D. 07/11/2019 Z01.810 Preoperative cardiovascular examination Gutierrez Olivarez M.D. 07/11/2019 R06.00 Dyspnea Gutierrez Olivarez M.D. 06/28/2019 M75.42 Impingement syndrome of left shoulder Janelle Daley MD 06/28/2019 S52.125D Nondisplaced fracture of head of left Janelle Daley MD radius, subsequent encounter for closed fracture with routine healing 06/20/2019 M17.31 Unilateral post-traumatic osteoarthritis, Juan Garg M.D. right knee 06/14/2019 M25.512 Pain in left shoulder Janelle Daley MD 06/14/2019 M25.522 Pain in left elbow Janelle Daley MD 06/14/2019 M75.42 Impingement syndrome of left shoulder Janelle Daley MD 06/14/2019 S52.125A Nondisplaced fracture of head of left Janelle Daley MD radius, initial encounter for closed fracture 05/23/2019 M17.31 Unilateral post-traumatic osteoarthritis, Juan Garg M.D. right knee 04/11/2019 M17.31 Unilateral post-traumatic osteoarthritis, Juan Garg M.D. right knee 03/16/2019 G47.33 Obstructive sleep apnea (adult) Teresa Painter MD (pediatric) Plan of Treatment Future Appointment(s):07/17/2019 2:00 pm - Ica ECHO Schedule at [facility]07/20/2019 9:30 am - Gutierrez Olivarez M.D. at [facility]08/09/2019 1:30 pm - Janelle Daley MD at [facility] at Gpkezm3108/22/2019 3:30 pm - Juan Garg M.D. at [facility]07/23/2019 7:30 am - Juan Garg M.D. at [facility] at [id number]/11/2019 - Gutierrez Olivarez M.D.R94.31 Electrocardiogram abnormalNew Orders:Stress Test, Pharmacologic Nuclear (Lexiscan), Scheduled: Echocardiogram, Scheduled: 07/17/19Follow up:3 rqghdW81.810 Preoperative cardiovascular ztztrltandfV19.00 Dyspnea Functional Status Description No Information Available Mental Status Description No Information Available Referrals Description No Information Available
--- OUTSIDE RECORDS SUMMARY | 2019-07-23 05:53 | XMS REPORT | Continuity of Care Document ---
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 Onset: 03/27/2019 Inactive: 03/27/2019 Adjustment disorder with mixed emotional features Onset: 03/27/2019 Inactive: 03/27/2019 Social History Type Date Description Comments Sex Unknown Tobacco Use Start: Unknown Patient has never smoked Smoking Status Reviewed: 07/11/19 Patient has never smoked Allergies, Adverse Reactions, Alerts Description No Known Drug Allergies Medications Active Medications SIG Qnty Indications Ordering Date Provider Rolling Walker 4 wheeled rolling 1units M17.9 [place] 07/11/2019 walker fit to MD Mack patent's height Icd 10: M17.9 Atorvastatin Calcium 1 daily oral 90tabs [place] 11/27/2018 MD Mack 20mg Tablets Levothyroxine Sodium 1 daily oral 90tabs [place] 11/27/2018 [facility] Mack 50mcg Tablets Eucerin Apply twice daily 120units Unknown 11/24/2018 Cream External Diclofenac Sodium 4 gm four times each 480units Unknown 07/24/2018 1% day prn Transdermal Gel Acetaminophen 2 every 6 hours prn Unknown 07/21/2018 325mg Oral; May use Tablets acetaminophen 650mg every 6 hours as needed for control of pain. Medications Administered in Office Medication SIG Qnty Indications Ordering Provider Date TB Intradermal Test Unknown 07/21/2018 Injection Immunizations CPT Code Status Date Vaccine Lot # [id number] Given 06/15/2019 Flu < 65 years [id number] 98829 Given 07/21/2018 Influenza Virus Vaccine, Quadrivalent, Split Virus, Im Use 0.5ML 34150 Given 07/21/2018 Flu < 65 years 63046 Given 07/21/2018 Influenza Virus Vaccine, Quadrivalent, Split, Preservative Free 11377 Given 07/21/2018 Flumist 73901 Given 07/21/2018 Flu High Dose 03806 Given 07/21/2018 Influenza Virus Vaccine, Split, Preserv Free, Intradermal Use 43493 Given 06/16/2015 Influenza Virus Vaccine, Quadrivalent, Split Virus, Im Use 0.5ML 92181 Given 06/16/2015 Flu < 65 years 44226 Given 06/16/2015 Influenza Virus Vaccine, Quadrivalent, Split, Preservative Free 13743 Given 06/16/2015 Flumist 28719 Given 06/16/2015 Flu High Dose 19490 Given 08/07/2013 Flu High Dose 97376 Given 08/07/2013 Fl[place]ist 12588 Given 08/07/2013 Influenza Virus Vaccine, Quadrivalent, Split, Preservative Free 24327 Given 08/07/2013 Flu < 65 years 30489 Given 08/07/2013 Influenza Virus Vaccine, Quadrivalent, Split, Im Use 0.25ML 48115 Given 08/07/2013 Influenza Virus Vaccine, Quadrivalent, Split, Im Use 0.25ML 18922 Given 08/07/2013 Influenza Virus Vaccine, Quadrivalent, Split, Im Use 0.25ML 16534 Given 08/22/2012 Influenza Virus Vaccine, Quadrivalent, Split, Im Use 0.25ML 82314 Given 08/22/2012 Influenza Virus Vaccine, Quadrivalent, Split, Im Use 0.25ML 74089 Given 08/22/2012 Influenza Virus Vaccine, Quadrivalent, Split, Im Use 0.25ML 65727 Given 08/22/2012 Flu < 65 years 53812 Given 08/22/2012 Influenza Virus Vaccine, Quadrivalent, Split, Preservative Free 04690 Given 08/22/2012 Flumist 89565 Given 08/22/2012 Flu High Dose 39576 Given 08/22/2012 Influenza Virus Vaccine, Split Virus, Preservative Free Im 0.5ML Q2038 Given 06/15/2011 Influenza Vaccine (Fluzone) Administered Age 3 And Older 89573 Given 06/15/2011 Influenza Virus Vaccine, Quadrivalent, Split, Im Use 0.25ML 58871 Given 07/13/2010 Influenza Virus Vaccine, Quadrivalent, Split, Im Use 0.25ML 73131 Given 07/13/2010 Influenza Virus Vaccine, Split Virus, Preservative Free Im 0.5ML Vital Signs Date Vital Result Comment 07/11/2019 9:30am BP Systolic 114 mmHg BP Diastolic 66 mmHg Weight 162.00 lb Heart Rate 72 /min Body Temperature 96.4 F O2 % BldC Oximetry 99 % 06/15/2019 10:43am BP Systolic 114 mmHg BP Diastolic 64 mmHg Height 56 inches 4'8" Weight 160.00 lb Heart Rate 61 /min Body Temperature 95.8 F O2 % BldC Oximetry 99 % BMI (Body Mass Index) 35.9 kg/m2 Results Test Acquired Date Facility Test Result H/L Range Note TSH 02/15/2019 N2N/CCD Import TSH 3.16 mcIU/mL 0.34-5.60 mcIU/mL Procedures Date Code Description Status 04/30/2019 89635 Brief Emotional/Behav Assessment W/ Scoring Doc Per Completed Standard Inst Medical Devices Description No Information Available Encounters Type Date Location Provider Dx Diagnosis Office Visit 07/11/2019 [facility] Caesar Giron MD M17.9 Osteoarthritis of knee, 9:30a unspecified Z01.818 Encounter for other preprocedural examination Office Visit 06/15/2019 11:00a [facility] Caesar Giron MD S52.125D Nondisp fx of head of l rad, subs for clos fx w routn heal M17.9 Osteoarthritis of knee, unspecified Z23 Encounter for immunization Z68.35 Body mass index (BMI) 35.0-35.9, adult Assessments Date Code Description Provider 07/11/2019 M17.9 Osteoarthritis of knee, unspecified Trista Giron MD 07/11/2019 Z01.818 Encounter for other preprocedural examination Trista Giron MD 06/15/2019 S52.125D Nondisplaced fracture of head of left radius, Trista Giron MD subsequent encounter for closed fracture with routine healing 06/15/2019 M17.9 Osteoarthritis of knee, unspecified Trista Giron MD 06/15/2019 Z23 Encounter for immunization Trista Giron MD 06/15/2019 Z68.35 Body mass index (BMI) 35.0-35.9, adult Trista Giron MD Plan of Treatment 07/11/2019 - Trista Giron MDM17.9 Osteoarthritis of knee, unspecifiedNew Medication:Rolling Walker - 4 wheeled rolling walker fit to patent's height Icd 10: M17.9New Orders:Physical Therapy Evaluate And Treat, Ordered: Z01.818 Encounter for other preprocedural examination Functional Status Description No Information Available Mental Status Description No Information Available Referrals Description No Information Available
--- OUTSIDE RECORDS SUMMARY | 2019-07-23 05:53 | XMS REPORT | Continuity of Care Document ---
:1970 External Reference #:[id number] Author Name Janelle Daley MD (transmitted by agent of provider Johana Cohen) Address [address], [place] [address] Care Team Providers Name Role Phone Trista Giron M.D. 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 Onset: 06/20/2019 Closed fracture of head of radius Janelle Daley MD Onset: 06/28/2019 Disorder of shoulder Janelle Daley MD Onset: 06/28/2019 Social History Type Date Description Comments Sex Unknown Tobacco Use Start: Unknown Never Smoked Cigarettes ETOH Use Drinks Alcoholic Beverages 1 per week Occasionally Tobacco Use Start: Unknown Patient has never smoked Recreational Drug Use Denies Drug Use Tobacco Use Start: Unknown Secondhand smoke In the past Smoking Status Reviewed: 06/28/19 Secondhand smoke In the past Exercise Type/Frequency [...] Juan Garg, 05/24/2019 - knee brace for M.DEliana 06/14/2019 right knee OA Ht 55 Wt 160 Immunizations Description No Information Available Vital Signs Date Vital Result Comment 06/28/2019 8:58am Height 55.5 inches 4'7.50" 06/20/2019 2:45pm Height 55.5 inches 4'7.50" Weight 160.00 lb Heart Rate 64 /min BP Systolic 122 mmHg BP Diastolic 72 mmHg Body Temperature 96.1 F Pain Level 3 BMI (Body Mass Index) 36.5 kg/m2 Results Description No Information Available Procedures Description No Information Available Medical Devices Description No Information Available Encounters Type Date Location Provider Dx Diagnosis Office Visit 06/14/2019 [facility] Janelle Daley MD M25.512 Pain in left 10:30a at [place] shoulder M25.522 Pain in left elbow M75.42 Impingement syndrome of left shoulder S52.125A Nondisp fx of head of left radius, init for clos fx Office Visit 04/11/2019 [facility] M17.31 Unilateral 8:30a [facility] at [facility] post-traumatic [place] osteoarthritis, right knee Office Visit 03/16/2019 [facility] G47.33 Obstructive sleep 9:15a [facility] (adult) 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 right knee 06/14/2019 M25.512 Pain in left shoulder Janelle Daley MD 06/14/2019 M25.522 Pain in left elbow Janelle Daley MD 06/14/2019 M75.42 Impingement syndrome of left shoulder Janelle Daley MD 06/14/2019 S52.125A Nondisplaced fracture of head of left Janelle Daley MD radius, initial encounter for closed fracture 05/23/2019 M17.31 Unilateral post-traumatic osteoarthritisJuan M.D. right knee 04/11/2019 M17.31 Unilateral post-traumatic osteoarthritis, Juan Garg M.D. right knee 03/16/2019 G47.33 Obstructive sleep apnea (adult) (pediatric) Teresa Painter MD Plan of Treatment Future Appointment(s):08/09/2019 1:30 pm - Janelle Daley MD at [facility] at Jnntvm1808/22/2019 3:30 pm - Juan Garg M.D. at [facility] at Lqnthi4707/11/2019 2:00 pm - Gutierrez Olivarez M.D. at [facility]07/23/2019 7:30 am - Juan Garg M.D. at [facility] at Vybzzw3906/28/2019 - Janelle Daley, MDM75.42 Impingement syndrome of left qppgzfyoG18.125A Nondisplaced fracture of head of left radius, initial encounter for closed fractureNew Xrays:Elbow Left 3+VWS, Ordered: Follow up:Follow up: 6 weeks Functional Status Description No Information Available Mental Status Description No Information Available Referrals Description No Information Available
[2019-07-23] MEDS ORDERED: Lactated Ringers 1000 ML Bag* 1,000 ML IV SCH (06:00)
[2019-07-23] MEDS ORDERED: Acetaminophen TAB* 325 MG PO ONE (06:00)
[2019-07-23] MEDS ORDERED: celeCOXIB CAP* 200 MG PO ONE (06:00)
[2019-07-23] MEDS ORDERED: Gabapentin CAP(*) 300 MG PO ONE (06:00)
[2019-07-23] MEDS ORDERED: celeCOXIB CAP* 200 MG ONE (06:50)
[2019-07-23] MEDS ORDERED: ceFAZolin 2 GM in NS PREMIX(*) 2 GM/100 ML BAG IVPB ONE (06:50)
[2019-07-23] MEDS ORDERED: Acetaminophen TAB* 325 MG ONE (06:50)
[2019-07-23] MEDS ORDERED: Gabapentin CAP(*) 300 MG ONE (06:50)
[2019-07-23] MEDS ORDERED: Propofol* 500 MG/50 ML BTL ONE (07:10)
[2019-07-23] MEDS ORDERED: Midazolam* 1 MG/ML 2 ML VIAL (2 MG) ONE (07:10)
[2019-07-23] MEDS ORDERED: fentaNYL* 50 MCG/ML 2 ML VIAL (100 MCG VIAL) ONE (07:10)
[2019-07-23] MEDS ORDERED: ROPIVACAINE 5 MG/ML 30 ML BTL (0.5%) ONE (07:16)
[2019-07-23] MEDS ORDERED: Bupivacaine 0.25% SDV PF* 10 ML VIAL INJ ONE (07:22)
[2019-07-23] MEDS ORDERED: Lidocaine 1% w EPI 1:200,000* SDV 30 ML VIAL ONE (07:29)
[2019-07-23] MEDS ORDERED: Phenylephrine 10 MG/ML VIAL* 1 ML VIAL ONE (08:04)
[2019-07-23] MEDS ORDERED: oxyCODONE TAB* 5 MG TAB PO PRN ×2 (08:29→10:34)
[2019-07-23] MEDS ORDERED: PROCHLORPERAZINE INJ 5 MG/ML 2 ML VIAL IV PRN (08:29)
[2019-07-23] MEDS ORDERED: Ondansetron INJ* 2 MG/ML VIAL IV PRN (08:29)
[2019-07-23] MEDS ORDERED: Naloxone* 0.4 MG/ML 1 ML VIAL IV PRN (08:29)
[2019-07-23] MEDS ORDERED: HYDROmorphone INJ1* 1 MG/ML SYRINGE IV PRN (08:29)
[2019-07-23] MEDS ORDERED: EPHEDrine (Pressors)* 50 MG/ML VIAL ONE (08:46)
[2019-07-23] MEDS ORDERED: diPHENhydraMINE IV* 50 MG/ML 1 ml VIAL (BENADRYL) IV PRN (10:34)
[2019-07-23] MEDS ORDERED: Morphine INJ* 2 MG/ML 1 ML SYRINGE (TWO MG - NEW SYRINGE VERSION) IV PRN (10:34)
[2019-07-23] MEDS ORDERED: Magnesium Hydroxide LIQ* 30 ML UDC PO PRN (10:34)
[2019-07-23] MEDS ORDERED: Cyclobenzaprine TAB* 10 MG PO PRN (10:34)
[2019-07-23] MEDS ORDERED: diPHENhydraMINE PO* 25 MG PO PRN (10:34)
[2019-07-23] MEDS: traMADol TAB* 50 MG PO SCH ×3 (13:35→23:14)
[2019-07-23] MEDS: Acetaminophen TAB* 325 MG PO SCH ×2 (13:41→23:14)
[2019-07-23] MEDS: ceFAZolin 1 GM ADVAN(*) 1 GM in NS 0.9% 50 ML* 50 ML IVPB SCH ×2 (15:43→23:16)
[2019-07-23] MEDS ORDERED: Warfarin TAB(*) 10 MG PO ONE (17:00)
--- NOTE | 2019-07-23 19:45 | OP ---
DATE OF OPERATION: 07/23/19 - ROOM #341 DATE OF : 66 ATTENDING SURGEON: Juan Garg MD ASSISTANT HEAD CASHIER: MARY Castaneda ANESTHESIA: Spinal/regional/sedation. PRE-OP DIAGNOSES: Osteoarthritis and valgus deformity of right knee. POST-OP DIAGNOSES: Osteoarthritis and valgus deformity of right knee. OPERATIVE PROCEDURE: Right total knee arthroplasty with Navio guidance. ESTIMATED BLOOD LOSS: 50 cc. COMPLICATIONS: None. HARDWARE: [employer] 3 narrow femur, #2 tibia, 9 mm polyethylene spacer, 29 mm polyethylene button. SUMMARY: Ms. Guzman is a 48-year-old female who has had a long history of troubles with her knees. She has down syndrome and had some very specific laxity as well. She still has a good solid MCL so I did not think she needed to constrain knee. By x-ray she was bone on bone in the lateral compartment with hyperplasia of the lateral femoral condyle so that she would have a 20 to 30 degrees valgus deformity to the knee. Her aunt who had knee replacements had seen how Kristal would struggle with trying to walk and get up and we had talked quite a bit about knee replacement surgery. Having gone through it, she realized that there is quite a bit to do and she coordinated with the entire family and the whole family did agree that knee replacement surgery for Ms. Guzman would be of benefit. Ms. Guzman also did agree. Risks of surgery such as infection, scar formation, stiffness, DVT, pulmonary embolism, and hardware failure were some of the risks discussed and they had all wished to proceed. She had a good premedical workup and had been declared optimized for surgery. DESCRIPTION OF PROCEDURE: The patient had a femoral nerve block placed in the holding area, was brought back to the OR. Spinal anesthesia was introduced. Alexandra catheter was placed. Tourniquet was placed over the proximal right thigh and was used during the case. Total tourniquet time would be 90 minutes. Right knee was prepped and then draped. Esmarch was used to exsanguinate the leg and the tourniquet was raised. Midline incision was made centered about the patella and carried down to the medial side of the tibial tubercle. Incision was carried out approximately 4 to 5 cm above the superior pole of the patella. Incision was carried down through the skin and subcutaneous tissues. Small bleeders encountered but ligated using electrocautery. Sharp parapatellar arthrotomy was made and a gush of clear yellowish joint fluid was encountered. Soft tissues were sharply elevated from the medial side of the tibia and the fat pad was sharply excised. Pins for the arrays of the Navio were then placed into the femur and into the tibia. Pins were also placed. Data points were then input for the arrays, the femoral and tibial pins, medial and lateral malleoli, center of the tibia, and the center of the femur. Distal femur was then scanned in until there was enough data point so that the computer was pleased and then similarly for the proximal tibia. The proximal tibia was also scanned in until adequate data points had been obtained. Computer sizer for a 3 narrow and a 2 and this corresponded well to preoperative templating. Parts were adjusted. She had quietly hypoplastic lateral femoral condyle such that almost no bone was taken laterally and most of the bone was taken medially from the femur and then the alignment adjusted to close down the gap so that she will be stable in flexion and extension. In flexion, there was still a larger medial gap, but this was adjusted as best it could be and I thought it would work well. Distal femur was then resected using the leonel and peg holes were then made. Distal femoral cutting block was placed and the top pad was used to check the alignment. The alignment appeared within half a degree and half a millimeter. Proximal femoral cut, anterior femoral cut, posterior femoral cut, and Chamfer cuts were all taken. Attention was turned to the tibia. Peg holes were drilled out using Navio guidance and the tibial guide was placed. Using the top pad this was weaned on a little bit so that she was within a degree and a millimeter of the preoperative templating and the tibial guide was also pinned into place. Proximal tibia was then resected. Spacer block was placed and in extension, she appeared perfect. With flexion, she had a little bit of medial looseness of about 2 to 3 mm but considering the alignment, I thought we are in excellent condition. Patella measured 20 mm at the peak and 12 on the medial and 15 on the lateral. Nice cut was taken leaving 10 to 11 mm of patella. Patella sized at 29 and holes were drilled and trial was snapped into place. Stress views also had been obtained and saved on the Navio. Pins were all then removed so I could check for patellar tracking and patellar tracking appeared excellent. Trial instrumentation was removed and the femur was finished using first the reamer and then the box osteotome. Similarly tibia was prepared using the drill and then the punch. The knee was copiously pulse lavaged. Parts were brought on and cement was being prepared. Tibia followed by femur and patella were all cemented into place. Excess cement was removed and while awaiting for the cement to dry, the tibial pin sites were closed using 3-0 nylon sutures. Once the cement was hardened, knee was searched for additional pieces of cement and a few small pieces were found. Knee was again copiously pulse lavaged. Trial [address] and she had wonderful motion, locking out now into full extension where before she could not and she could flex easily and a very good stability throughout. Trial was removed and knee was again copiously pulse lavaged and searched for cement. Polyethylene was then snapped into place. Knee was again pulse lavaged and parapatellar arthrotomy was repaired using interrupted #1 Vicryl sutures. 90 minutes when reached on the tourniquet during this time and tourniquet was let down. No significant bleeding was encountered and a few small pumpers seen were ligated using electrocautery. Subcutaneous tissues were approximated with 2-0 Vicryl, skin was closed using huy. Sterile dressing and a Cryo/Cuff were applied in the OR. The patient was then awakened stable and transferred to the recovery room. [id number]/[facility] #: [id number] CHRISSY
[2019-07-23] MEDS: Ondansetron INJ* 2 MG/ML VIAL IV PRN (21:15)
[2019-07-23] MEDS: Magnesium Hydroxide LIQ* 30 ML UDC PO SCH (23:15)
[2019-07-23] MEDS: Docusate CAP* 100 MG PO SCH (23:15)
[2019-07-24] MEDS: D5W 1/2 NS 1000 ML BAG* 1,000 ML IV SCH ×2 (02:34→12:45)
[2019-07-24] MEDS: Acetaminophen TAB* 325 MG PO SCH ×3 (05:44→21:11)
[2019-07-24] MEDS: traMADol TAB* 50 MG PO SCH ×4 (05:45→22:53)
[2019-07-24 06:14] LABS: Hematocrit 34 % (35-47); Hemoglobin 11.5 g/dL (12.0-16.0); Mean Platelet Volume 7.2 fL (7.4-10.4); Platelet Count 181 10^3/uL (150-450)
[2019-07-24 06:21] LABS: INR 1.42 (0.82-1.09)
[2019-07-24 06:38] LABS: BUN/Creatinine Ratio 12.5 (8-20); Calcium 7.9 mg/dL (8.6-10.3); EGFR African American 82.3 (>60); Potassium 4.2 mmol/L (3.5-5.0)
[2019-07-24 08:30] LABS: HIV 4th Generation Nonreactive (Nonreactive)
[2019-07-24] MEDS: Vitamin THERAPEUTIC TAB PO SCH (08:36)
[2019-07-24] MEDS: ceFAZolin 1 GM ADVAN(*) 1 GM in NS 0.9% 50 ML* 50 ML IVPB SCH (08:36)
[2019-07-24] MEDS: Docusate CAP* 100 MG PO SCH ×2 (08:37→21:10)
[2019-07-24] MEDS: Magnesium Hydroxide LIQ* 30 ML UDC PO SCH ×2 (08:37→21:10)
[2019-07-24] MEDS: Heparin VIAL(*) 5000 UNITS/ML VIAL (FIVE THOUSAND) SUBCUT SCH ×3 (08:37→22:54)
--- NOTE | 2019-07-24 09:26 | PN ---
Progress Note - Progress Note Date of Service: 07/24/19 SOAP: Subjective: []Pt seen and examined at bedside, her aunt Vijaya is present. Knee pain is well controlled. Denies CP, SOB, dizziness or nausea. Objective: []Gen: NAD, appears well RLE: Right knee dressing CDI, cryo cuff in use. DF/PF intact, DP2+, sensation intact to light touch distally Calves supple and nontender without erythema, edema or palpable cords Assessment: []pod 1 SP rtk with navio Plan: []WBAT PT/OT heparin bridge to coumadin, Coumadin 4 mg today Soft BP, low at preadmit testing as well and asymptomatic. Encourage PO intake Vital Signs Temp 97.6 F 07/24/19 05:06 Pulse 68 07/24/19 05:06 Resp 16 07/24/19 06:00 BP 90/46 07/24/19 05:06 Pulse Ox 100 07/24/19 06:00 Intake & Output 07/23/19 07/24/19 07/24/19 18:59 06:59 18:59 Intake Total 600 3050 Output Total 600 1150 200 Balance 0 1900 -200 Intake: IV Fluids 980 D5W 1/2 NS 980 IVPB 220 ABX - CEFAZOLIN 220 Oral 600 1850 Output: Urine 200 Alexandra 550 1150 Estimated Blood Loss 50 Other: Estimated Void Small Large # Bowel Movements 0 1 Estimated Stool Amount Medium # Voids 2 Laboratory Last Values Hgb 11.5 g/dL (12.0-16.0) L 07/24/19 05:37 Hct 34 % (35-47) L 07/24/19 05:37 Plt Count 181 10^3/uL (150-450) 07/24/19 05:37 MPV 7.2 fL (7.4-10.4) L 07/24/19 05:37 INR (Anticoag Therapy) 1.42 (0.82-1.09) H 07/24/19 05:37 Sodium 132 mmol/L (135-145) L 07/24/19 05:37 Potassium 4.2 mmol/L (3.5-5.0) 07/24/19 05:37 Chloride 100 mmol/L (101-111) L 07/24/19 05:37 Carbon Dioxide 29 mmol/L (22-32) 07/24/19 05:37 Anion Gap 3 mmol/L (2-11) 07/24/19 05:37 BUN 11 mg/dL (6-24) 07/24/19 05:37 Creatinine 0.88 mg/dL (0.51-0.95) 07/24/19 05:37 Est GFR ( Amer) 82.3 (>60) 07/24/19 05:37 Est GFR (Non-Af Amer) 68.0 (>60) 07/24/19 05:37 BUN/Creatinine Ratio 12.5 (8-20) 07/24/19 05:37 Glucose 183 mg/dL (70-100) H 07/24/19 05:37 Calcium 7.9 mg/dL (8.6-10.3) L 07/24/19 05:37 HIV 1&2 Ab/P24 Ag 4thGn Nonreactive (Nonreactive) 07/24/19 05:37
[2019-07-24] MEDS: Ondansetron ODT TAB* 4 MG PO PRN ×2 (10:32→16:50)
[2019-07-24] MEDS ORDERED: Warfarin TAB(*) 4 MG PO ONE (17:00)
[2019-07-24] MEDS: Ondansetron INJ* 2 MG/ML VIAL IV PRN (22:54)
[2019-07-25] MEDS: traMADol TAB* 50 MG PO SCH ×3 (04:50→17:02)
[2019-07-25] MEDS: Ondansetron INJ* 2 MG/ML VIAL IV PRN (04:50)
[2019-07-25] MEDS: Acetaminophen TAB* 325 MG PO SCH ×2 (05:52→14:36)
[2019-07-25] MEDS: Heparin VIAL(*) 5000 UNITS/ML VIAL (FIVE THOUSAND) SUBCUT SCH (05:52)
[2019-07-25 06:45] LABS: INR 3.59 (0.82-1.09)
[2019-07-25 06:47] LABS: Hematocrit 33 % (35-47); Mean Platelet Volume 7.6 fL (7.4-10.4); Platelet Count 182 10^3/uL (150-450)
[2019-07-25] MEDS: Vitamin THERAPEUTIC TAB PO SCH (08:32)
[2019-07-25] MEDS: Docusate CAP* 100 MG PO SCH (08:33)
[2019-07-25] MEDS: Magnesium Hydroxide LIQ* 30 ML UDC PO SCH (08:34)
[2019-07-25] MEDS ORDERED: Bisacodyl SUPP* 10 MG SUPP PR PRN (10:34)
--- NOTE | 2019-07-25 10:47 | DS ---
Orthopedic Discharge Summary - Discharge Summary Date of Admission:07/23/19 Date of Discharge: 07/25/19 Date of Surgery: 07/23/19 Attending Orthopedic Provider: Dr Garg Pre-operative Diagnosis: Right knee osteoarthritis Operative Procedure: right total knee replacement, navio assisted Disposition of Patient: home with VNS Condition of Patient: stable History: SHAY CUEVAS is a 48 year old F with years of increasingly severe right knee pain. Patient has failed conservative management and has elected to undergo a right total knee replacement Hospital Course: SHAY was admitted to [facility] on 07/23/19. Patient underwent a right total knee replacement without complication followed by a brief recovery in PACU and transfer to the Short Stay Surgical Unit in stable condition. Our physical therapy and occupational therapy also participated in this patients care. Post-op day 1: patient was alert and in no acute distress. Dressing was clean, dry and intact. Operative extremity dorsiflexion and plantarflexion intact, sensation intact to light touch distally , DP2+. Post-op day two: Patient seen at bedside she feels well without CP, SOB , dizziness or nausea. Pain is well controlled. Dressing was changed, incisions were clean, dry and intact. Sodium improved from yesterday, will recheck outpatient within 3 days. Patient was deemed to be medically and orthopedically stable for discharge. Physical therapy goals were met. Home Medications Medication Instructions Recorded Confirmed Type Acetaminophen TAB* [Tylenol TAB*] 325 mg PO Q4H PRN 03/06/18 07/23/19 History Acetaminophen TAB* [Tylenol TAB*] 975 mg PO Q8HR tab 07/25/19 Rx Docusate CAP* [Colace Cap*] 100 mg PO BID PRN #90 cap 07/25/19 Rx Warfarin TAB(*) [Coumadin TAB(*)] 2 mg PO DAILY 30 Days #90 tab 07/25/19 Rx traMADol TAB* [Ultram*] 50 mg PO Q6H #50 tab MDD 8 07/25/19 Rx Discharge Instructions following Orthopedic Surgery: Activity: * Weight Bearing as tolerated * Continue physical therapy and occupational therapy exercises as shown * Home PT Wound care: * OK to shower on post-op day 3, no bathing, swimming, or submerging wound. * Use gentle soap, pat dry. Cover with gauze, MARLENY wrap or tape. * Visiting home nurse to do wound checks. Nursing to Remove sutures and huy in 2 weeks Call Orthopedic office for: * Increased drainage * Redness * Increased pain * Fever Go to ER with shortness of breath or chest pain. Diet: * Regular diet * Increase fluids and fiber to prevent constipation. * Continue to use stool softeners, call office if no bowel motion within 48 hours. Medications See Home Medication List in your packet for medications that you should take after discharge. DVT Prophylaxis: Increases bleeding tendency Coumadin Dosing: * Please note that you have been given 2 mg tablets. * Visiting home nurse to draw blood work for INR on Tuesday and . * You will be provided with dose instructions on Mondays and . * If you do not receive dosing instruction on dosing, please call our office right away. Please silverio dosing instructions on your calendar as they are provided to you. * Dosin mg take no coumadin on 07/25. Have your INR blood draw rechecked on 07/26 by home nursing for further dosing instructions. Call orthopedic office if you do not receive dosing instructions. Nursing to draw sodium level within 3 days, 130 on 07/25/19 Pain Control: Tramadol 50 mg 1 tab for moderate pain and 2 tabs for severe pain every 6 hours as needed. Max 8 tabs per day. Hold for sedation, wean off as soon as pain allows Antibiotics are required prior to any dental work. FOLLOW UP: Follow up with [Britany] Within 4 weeks, call for appointment Please call our office with any questions or concerns ([phone])
[2019-07-25 15:56] VITALS: BP 133/56
== END 2019-07-25 18:50 | disposition home health service (06) | DRG 470 ==
LOC: AA 05:48 → SSU 10:34
PROVIDERS: ADMIT Orthopaedic Surgery; ATTEND Orthopaedic Surgery
PROC: 8E0YXBZ Computer Assisted Procedure of Lower Extremity (ICD-10-PCS; 2019-07-23)
PROC: 0SRC0J9 Replacement of Right Knee Joint with Synthetic Substitute, Cemented, Open Approach (ICD-10-PCS; principal; 2019-07-23 07:30)
DX: M17.31 Unilateral post-traumatic osteoarthritis, right knee (principal); F03.90 Unspecified dementia, unspecified severity, without behavioral disturbance, psychotic disturbance, mood disturbance, and anxiety; G47.33 Obstructive sleep apnea (adult) (pediatric); F41.9 Anxiety disorder, unspecified; F32.9 Major depressive disorder, single episode, unspecified; R01.1 Cardiac murmur, unspecified; E66.9 Obesity, unspecified; R94.31 Abnormal electrocardiogram [ECG] [EKG]; E03.9 Hypothyroidism, unspecified; Q90.9 Down syndrome, unspecified; Z72.89 Other problems related to lifestyle; Z68.27 Body mass index [BMI] 27.0-27.9, adult
CPT/HCPCS: 36415; 80048; 84300; 85014; 85018; 85049; 85610; 87389; 88305; 88311; A9270-GY; C1776; G8978-GP-CK; G8979-GP-CI; G8987-GO-CK; G8988-GO-CJ; J0690; J1644; J2001; J2250; J2405; J2704; J2795; J3010; J3490

== ENCOUNTER 2023-11-07 06:22 | Observation (INO) ==
[2023-11-07] MEDS ORDERED: ceFAZolin 2 GM PREMIX 2 GM/50 ML BAG ONE (06:46)
[2023-11-07] MEDS ORDERED: Famotidine IV 10 MG/ML 2 ml VIAL (20 mg) ONE (06:46)
[2023-11-07] MEDS ORDERED: Buffered Lidocaine 1% SYRIN 1 ml ONE (07:00)
[2023-11-07] MEDS: Lactated Ringers 1000 ml BAG 1,000 ML IV SCH (07:06)
[2023-11-07] MEDS: Buffered Lidocaine 1% SYRIN 1 ml INTRADERM ONE (07:06)
[2023-11-07] MEDS: Famotidine IV 10 MG/ML 2 ml VIAL (20 mg) IV ONE (07:06)
[2023-11-07] MEDS ORDERED: Dexamethasone IV 4 MG/ML VIAL 1 ml VIAL ONE (07:08)
[2023-11-07] MEDS ORDERED: Propofol 10 MG/ML 20 ML BTL ONE (07:08)
[2023-11-07] MEDS ORDERED: Rocuronium 50 mg VIAL 10 mg/ml 5 ml VIAL (50 mg) ONE ×2 (07:08→09:49)
[2023-11-07] MEDS ORDERED: Ondansetron 4 mg VIAL 2 MG/ML 2 ml VIAL ONE ×2 (07:08→12:12)
[2023-11-07] MEDS ORDERED: Lidocaine 2% PF 5 ML VIAL ONE (07:08)
[2023-11-07] MEDS ORDERED: Midazolam 2 mg/2 ml VIAL 1 mg/ml 2 ml VIAL (2 mg) ONE (07:09)
[2023-11-07] MEDS ORDERED: fentaNYL 100 mcg/2 ml 50 MCG/ML VIAL ONE ×2 (07:09→11:20)
[2023-11-07] MEDS ORDERED: Bupivacaine 0.5% SDV PF 30ML VIAL ONE (07:25)
[2023-11-07] MEDS ORDERED: Naloxone 0.4 mg VIAL 0.4 mg/ml 1 ml VIAL IV PRN (08:15)
[2023-11-07] MEDS ORDERED: Phenylephrine 40 mcg/mL 10mL (400mcg) SYRINGE ONE (08:58)
[2023-11-07] MEDS: fentaNYL 100 mcg/2 ml 50 MCG/ML VIAL IV PRN (11:22)
[2023-11-07] MEDS: Ondansetron 4 mg VIAL 2 MG/ML 2 ml VIAL IV PRN (12:24)
[2023-11-07] MEDS ORDERED: Ondansetron 4 mg VIAL 2 MG/ML 2 ml VIAL IV PRN (14:45)
[2023-11-08 09:45] VITALS: BP 102/67
== END 2023-11-08 13:34 | disposition home or self-care (01) ==
LOC: SSU 06:22 → OR 06:22
PROVIDERS: ADMIT Surgery Surgical Critical Care; ATTEND Surgery Surgical Critical Care

== ENCOUNTER 2024-08-18 16:42 | Observation (INO) ==
[2024-08-18] MEDS: Lactated Ringers 1000 ml BAG IV.FLUID IV ONE (17:11)
[2024-08-18 17:26] LABS: ABS Basophils 0.2 10^3/uL (0.0-0.1); ABS Eosinophils 0.1 10^3/uL (0.0-0.5); ABS Lymphocytes 2.1 10^3/uL (1.0-4.8); ABS Monocytes 0.6 10^3/uL (0.0-0.9); ABS Neutrophils 3.8 10^3/uL (1.5-7.6); ABS Nucleated RBC 0.01 10^3/ul; Eosinophil % 1.8 %; Hematocrit 39.4 % (35-45); Hemoglobin 12.9 g/dL (11.5-14.3); Lymphocyte % 31.2 %; Mean Corpuscular Hemoglobin 28.2 pg (27-33); Mean Corpuscular Hgb Conc 32.6 g/dL (31-36); Mean Corpuscular Volume 86.5 fL (80-97); Mean Platelet Volume 7.4 fL (7.5-11.2); Nucleated Red Blood Cells % 0.1 %/100WBC (0.0-0.8); Platelet Count 211 10^3/uL (150-450); Red Blood Count 4.56 10^6/uL (3.63-4.92); Red Cell Distribution Width 17.9 % (12-17); White Blood Count 6.8 10^3/uL (3.8-11.8)
[2024-08-18 18:11] LABS: Albumin 3.7 g/dL (3.2-5.2); Albumin/Globulin Ratio 1.2 (1-3); Calcium 8.9 mg/dL (8.6-10.3); Creatinine, Serum 1.1 mg/dL (0.51-0.95); Globulin 3.1 g/dL (2-4); Magnesium 2.2 mg/dL (1.9-2.7); Potassium 4.7 mmol/L (3.5-5.0); Total Bilirubin 0.6 mg/dL (0.2-1.0); Total Protein 6.8 g/dL (6.4-8.9); eGFR CKD-EPI 59.3 (>60)
[2024-08-18 18:16] LABS: Urine Appearance Clear; Urine Bilirubin Negative (Negative); Urine Blood Negative (Negative); Urine Color Colorless; Urine Glucose Negative (Negative); Urine Ketones Negative (Negative); Urine Nitrite Negative (Negative); Urine Protein Negative (Negative); Urine Specific Gravity 1.011 (1.002-1.030); Urine Urobilinogen Negative (Negative)
[2024-08-18 18:42] LABS: High Sensitivity Troponin 1 Hr 72 pg/mL (<15)
[2024-08-18] MEDS: Iohexol 350 (CONTRAST) 500 ML MDV IV ONE (19:56)
[2024-08-18 20:39] LABS: High Sensitivity Troponin 3 Hr 60 pg/mL (<15)
[2024-08-19] MEDS ORDERED: Fluticasone NASAL SPRAY 50MCG 16 gm SPRAY BTL INTRANASAL PRN (01:30)
[2024-08-19] MEDS ORDERED: Sulfur Hexaflouride MICROSPHR 25 MG VIAL IV PRN (01:32)
[2024-08-19] MEDS: Enoxaparin 40 MG/0.4 ML SYR SUBCUT SCH (02:06)
[2024-08-19 06:36] LABS: ABS Basophils 0.1 10^3/uL (0.0-0.1); ABS Eosinophils 0.2 10^3/uL (0.0-0.5); ABS Lymphocytes 1.9 10^3/uL (1.0-4.8); ABS Monocytes 0.6 10^3/uL (0.0-0.9); ABS Neutrophils 4.1 10^3/uL (1.5-7.6); ABS Nucleated RBC 0.02 10^3/ul; Eosinophil % 2.6 %; Hematocrit 36.2 % (35-45); Hemoglobin 11.9 g/dL (11.5-14.3); Lymphocyte % 27.4 %; Mean Corpuscular Hemoglobin 28.4 pg (27-33); Mean Corpuscular Volume 86.2 fL (80-97); Mean Platelet Volume 7.8 fL (7.5-11.2); Nucleated Red Blood Cells % 0.2 %/100WBC (0.0-0.8); Platelet Count 200 10^3/uL (150-450); Red Cell Distribution Width 17.5 % (12-17); White Blood Count 6.8 10^3/uL (3.8-11.8)
[2024-08-19 07:15] LABS: Calcium 8.4 mg/dL (8.6-10.3); Creatinine, Serum 1.09 mg/dL (0.51-0.95); Magnesium 2.2 mg/dL (1.9-2.7)
[2024-08-19] MEDS: CMCS:Cyclosporine 0.05% OPHTH (NF) 0.4 ML VIAL BOTH EYES SCH (09:11)
[2024-08-19] MEDS: Memantine XR 14 mg CAP PO SCH (09:11)
[2024-08-20 06:16] LABS: Hemoglobin 12.8 g/dL (11.5-14.3); Mean Corpuscular Hemoglobin 28.5 pg (27-33); Mean Corpuscular Hgb Conc 32.9 g/dL (31-36); Mean Corpuscular Volume 86.8 fL (80-97); Mean Platelet Volume 7.8 fL (7.5-11.2); Platelet Count 205 10^3/uL (150-450); Red Blood Count 4.49 10^6/uL (3.63-4.92); Red Cell Distribution Width 17.6 % (12-17); White Blood Count 6.7 10^3/uL (3.8-11.8)
[2024-08-20 06:23] LABS: Calcium 8.7 mg/dL (8.6-10.3); Creatinine, Serum 1.19 mg/dL (0.51-0.95); Magnesium 2.1 mg/dL (1.9-2.7)
[2024-08-21 06:04] LABS: ABS Basophils 0.1 10^3/uL (0.0-0.1); ABS Eosinophils 0.2 10^3/uL (0.0-0.5); ABS Lymphocytes 1.6 10^3/uL (1.0-4.8); ABS Monocytes 0.6 10^3/uL (0.0-0.9); ABS Neutrophils 3.4 10^3/uL (1.5-7.6); Eosinophil % 3.4 %; Hematocrit 37.2 % (35-45); Lymphocyte % 27.2 %; Mean Corpuscular Hgb Conc 32.3 g/dL (31-36); Mean Corpuscular Volume 86.5 fL (80-97); Mean Platelet Volume 7.7 fL (7.5-11.2); Platelet Count 199 10^3/uL (150-450); Red Blood Count 4.31 10^6/uL (3.63-4.92); Red Cell Distribution Width 17.8 % (12-17)
[2024-08-21 07:24] LABS: Calcium 8.4 mg/dL (8.6-10.3); Creatinine, Serum 0.97 mg/dL (0.51-0.95); Phosphorus 4.3 mg/dL (2.5-5.0)
[2024-08-21 10:13] VITALS: BP 82/42
== END 2024-08-21 16:00 | disposition home or self-care (01) ==
LOC: EDHOLD 16:42 → ED 16:42 → SUATTDRO 21:54 → MEDTELE 22:51
PROVIDERS: ADMIT Internal Medicine; ATTEND Student in an Organized Health Care Education/Training Program